=== PATIENT | female | born 1980 | race African-American/Black ===

== ENCOUNTER 2017-03-30 11:35 | Emergency (ER) | payer OTHER ==
[2017-03-30] MEDS ORDERED: SODIUM CHLORIDE 0.9% 1000 ML INFUS.BAG IV ONE ×2 (11:42→12:25)
--- NOTE | 2017-03-30 11:49 | PDOC ---
Attending Attestation - Resident Resident Name: JoseEric albarran - ED Attending Attestation I have performed the following: I have examined & evaluated the patient, The case was reviewed & discussed with the resident, I agree w/resident's findings & plan, Exceptions are as noted - HPI HPI: 36 yo F history DM2 presents with 4-5 days of nausea, intermittent vomiting, and elevated blood glucose measurements. She states she has symptoms of a yeast infection. She has had recent polyuria. No fever, cough, cp, SOB. No recent illness. She states she has been adherent to her DM regimen. - Physicial Exam PE: GENERAL: Awake, alert, and fully oriented, in no acute distress. +Odor of yeast. HEAD: No signs of trauma EYES: PERRLA, EOMI, sclera anicteric, conjunctiva clear ENT: Auricles normal inspection, hearing grossly normal, nares patent, oropharynx clear without exudates. Moist mucosa NECK: Normal ROM, supple, no lymphadenopathy, JVD, or masses LUNGS: Breath sounds equal, clear to auscultation bilaterally. No wheezes, and no crackles HEART: Regular rate and rhythm, normal S1 and S2, no murmurs, rubs or gallops ABDOMEN: Soft, +epigastric tenderness, normoactive bowel sounds. No guarding, no rebound. No masses EXTREMITIES: Normal range of motion, no edema. No clubbing or cyanosis. No cords, erythema, or tenderness NEUROLOGICAL: Cranial nerves II through XII grossly intact. Normal speech, normal gait SKIN: Warm, Dry, normal turgor, no lesions noted. - Medical Decision Making No signs of acute abdomen on exam. Will treat with IV fluids and insulin for elevated blood sugar, will obtain CBC/CMP/acetone and UA.
[2017-03-30 11:50] VITALS: BMI 29.7
[2017-03-30] MEDS ORDERED: FLUCONAZOLE 150 MG TABLET PO ONE (12:11)
[2017-03-30] MEDS ORDERED: FLUCONAZOLE 100 MG TABLET (UD) ONE (12:29)
[2017-03-30 12:41] LABS: BASO % 0.5 % (0-2.0); EOS % 0.4 % (0-4.5); LYMPH # 1.5 (8-40); MCH 22.5 pg (25.7-33.7); MCHC 31.8 g/dl (32.0-36.0); MEAN CELL VOLUME 70.8 fl (80-96); MEAN PLT VOLUME 8.9 fl (7.5-11.1); MONO # 0.4 # (3.8-10.2); NEUT # 3.7 # (42.8-82.8); NEUT % 66.1 % (42.8-82.8); PLATELET COUNT 245 K/MM3 (134-434); RDW 15.2 % (11.6-15.6); WHITE BLOOD COUNT 5.6 K/mm3 (4.0-10.0)
[2017-03-30 12:49] LABS: VENOUS BLOOD GAS HCO3 30.5 meq/L (19-25); VENOUS PH 7.42 (7.32-7.42)
[2017-03-30 12:58] LABS: ALBUMIN 3.1 g/dl (3.4-5.0); ANION GAP 8 (8-16); BILIRUBIN,TOTAL 0.5 mg/dL (0.2-1.0); CALCIUM 8.6 mg/dL (8.5-10.1); CO2 32 mmol/L (21-32); CREATININE 0.7 mg/dL (0.55-1.02); MAGNESIUM 1.3 mg/dL (1.8-2.4); SGOT/AST 27 U/L (15-37); SGPT/ALT 31 U/L (12-78); TOT PROT 7.4 g/dl (6.4-8.2)
[2017-03-30 12:59] LABS: ALK PHOS 295 U/L (45-117)
[2017-03-30 13:14] LABS: GLUCOSE,RANDOM 455 mg/dL (74-106)
--- NOTE | 2017-03-30 13:21 | PDOC ---
History of Present Illness - General Chief Complaint: Nausea/Vomiting Stated Complaint: HYPERGLYCEMIA Time Seen by Provider: 03/30/17 11:40 History Source: Patient, EMS Exam Limitations: No Limitations - History of Present Illness Initial Comments: 03/30/17 13:15 The patient is a 36F with a PMH of IDDM who presents to the ED via EMS for 4-5 days of nausea, vomiting, and diarrhea. The patient was sent from her PCP's office for having a BGL of 526. She was given humalog in the clinic. She is complaining of dizziness, weakness, nausea, vomiting, and a yeast infection ( which she says she gets frequently 2/2 to diabetes). She is also complaining of a headache, frontal, pressure-like and does not radiate. She denies CP, SOB, fever, chills. She has been urinating more frequently. Past History - Past Medical History Allergies/Adverse Reactions: Allergies Allergy/AdvReac Type Severity Reaction Status Date / Time No Known Allergies Allergy Verified 03/30/17 11:47 Home Medications: Ambulatory Orders Atorvastatin Ca [Lipitor] 10 mg PO HS 03/30/17 Baclofen 10 mg PO BID PRN 03/30/17 Cephalexin Monohydrate [Keflex -] 500 mg PO BID #10 capsule 03/30/17 L. Acidophilus/Pectin, [place] [Acidophilus Capsule] 1 each PO DAILY 03/30/17 Liraglutide [Victoza -] 1.2 mg SQ DAILY@0700 03/30/17 Anemia: No Asthma: Yes (childhood) Cancer: No Cardiac Disorders: No CVA: No COPD: No CHF: No Dementia: No Diabetes: Yes (IDDM) GI Disorders: Yes (GASTRITIS) Disorders: No HTN: No Hypercholesterolemia: No Liver Disease: No Seizures: No Thyroid Disease: No - Surgical History Abdominal Surgery: No Appendectomy: No Cardiac Surgery: No Cholecystectomy: No Lung Surgery: No Neurologic Surgery: No Orthopedic Surgery: Yes (tooth extraction) - Reproductive History Spontaneous : 3 (one prior d+c; eager to have procedure again + move on) - Immunization History Immunization Up to Date: Yes - Suicide/Smoking/Psychosocial Hx Smoking Status: No Smoking History: Never smoked Have you smoked in the past 12 months: No Number of Cigarettes Smoked Daily: 0 Hx Alcohol Use: No Drug/Substance Use Hx: No Substance Use Type: None Hx Substance Use Treatment: No Review of Systems - Review of Systems Able to Perform ROS?: Yes Comments:: 03/30/17 13:17 GENERAL/CONSTITUTIONAL: No fever or chills. No weakness. HEAD, EYES, EARS, NOSE AND THROAT: No change in vision. No ear pain or discharge. No sore throat. GASTROINTESTINAL: Positive for nausea, vomiting, diarrhea, and abdominal pain. GENITOURINARY: Positive for increased frequency and yeast infection. No dysuria. CARDIOVASCULAR: No chest pain, palpitations, or lightheadedness. RESPIRATORY: No cough, wheezing, shortness of breath, or hemoptysis. MUSCULOSKELETAL: No joint or muscle swelling or pain. No neck or back pain. SKIN: No rash or lesions. NEUROLOGIC: Positive for headache. No numbness, tingling, weakness, loss of consciousness, or change in strength/sensation. ENDOCRINE: Positive for increased thirst. No abnormal weight change. HEMATOLOGIC/LYMPHATIC: No anemia, easy bleeding, or history of blood clots. ALLERGIC/IMMUNOLOGIC: No hives or skin allergy. Is the patient limited Arabic proficient: No *Physical Exam - Vital Signs Last Vital Signs Temp Pulse Resp BP Pulse Ox 98.5 F 119 H 18 93/69 100 03/30/17 11:47 03/30/17 11:47 03/30/17 11:47 03/30/17 11:47 03/30/17 11:47 - Physical Exam Comments: 03/30/17 13:31 GENERAL: Well developed, well nourished. Awake and alert. No acute distress. HEENT: Normocephalic, atraumatic. Hearing grossly normal. Moist mucous membranes. PERRLA, EOMI. No conjunctival pallor. Sclera are non-icteric. Oropharynx is clear. NECK: Supple. Full ROM. No JVD. CARDIOVASCULAR: Regular rate and rhythm. No murmurs, rubs, or gallops. Distal pulses are 2+ and symmetric. PULMONARY: No evidence of respiratory distress. Lungs clear to auscultation bilaterally. No wheezing, rales or rhonchi. ABDOMINAL: Positive for diffuse tenderness to palpation, especially in epigastric region. Soft. Non-distended. No rebound or guarding. No organomegaly. Normoactive bowel sounds. GENITOURINARY: No CVA tenderness bilaterally. MUSCULOSKELETAL: Normal range of motion at all joints. No bony deformities or tenderness. EXTREMITIES: No cyanosis. No clubbing. No edema. No calf tenderness. SKIN: Warm and dry. Normal capillary refill. No rashes. No jaundice. NEUROLOGICAL: Alert, awake, appropriate. Cranial nerves 2-12 intact. PSYCHIATRIC: Cooperative. Good eye contact. Appropriate mood and affect. Heart Score/ECG Review #1 General ECG Interpretation: Sinus Rhythm, Normal Rate, Normal Intervals, No acute ischemic changes Compared to previous ECG there are: Previous ECG unavail 03/30/17 13:33 Sinus tach 101 Developing/Incomplete RBBB QRS 98 QTc 451 ED Treatment Course - LABORATORY CBC & Chemistry Diagram: 03/30/17 12:18 03/30/17 12:41 - ADDITIONAL ORDERS Additional order review: Laboratory Results 03/30/17 03/30/17 12:41 12:41 VBG pH 7.42 POC VBG pCO2 47.6 POC VBG pO2 50.7 H Mixed VBG HCO3 30.5 H Sodium 134 L Potassium 3.4 L Chloride 94 L Carbon Dioxide 32 Anion Gap 8 BUN 10 D Creatinine 0.7 D Creat Clearance w eGFR > 60 Random Glucose 455 H* D Calcium 8.6 Magnesium 1.3 L Total Bilirubin 0.5 D AST 27 D ALT 31 Alkaline Phosphatase 295 H Creatine Kinase Cancelled Troponin I Cancelled Total Protein 7.4 Albumin 3.1 L 03/30/17 12:18 RBC 5.25 H D MCV 70.8 L MCHC 31.8 L RDW 15.2 MPV 8.9 Neutrophils % 66.1 D Lymphocytes % 26.7 D Monocytes % 6.3 Eosinophils % 0.4 Basophils % 0.5 - Medications Given in the ED: ED Medications Discontinued Medications Generic Name Dose Route Start Last Admin Trade Name Freq PRN Reason Stop Dose Admin Fluconazole 150 mg 03/30/17 12:11 03/30/17 12:31 Fluconazole PO 03/30/17 12:12 150 mg ONCE ONE Administration Sodium Chloride 1,000 ml 03/30/17 11:42 03/30/17 12:27 Normal Saline - IV 03/30/17 11:43 1,000 ml ONCE ONE Administration Medical Decision Making - Medical Decision Making 03/30/17 17:45 The patient is a 36F with a PMH of DM who presented with a BGL that was read as "high". She was not acidotic and did not have acetones or an increased gap. This is likely just high blood glucose. Her GI symptoms have resolved. BGL after insulin in ED is 206. Patient agrees for d/c. *DC/Admit/Observation/Transfer Diagnosis at time of Disposition: High glucose - Discharge Dispostion Disposition: HOME Condition at time of disposition: Stable Admit: No - Prescriptions Prescriptions: Cephalexin Monohydrate [Keflex -] 500 mg PO BID #10 capsule - Referrals Referrals: Jeff Chen MD [Primary Care Provider] - - Patient Instructions Printed Discharge Instructions: DI for Nausea -- Adult, DI for Vomiting -- Adult Additional Instructions: Please return to the ER if symptoms persist, worsen, or new symptoms arise. Please follow up with your primary care physician in 2-3 days. Please return to the ER if you have any signs or symptoms of chest pain, shortness of breath, uncontrollable fever, chills, nausea, vomiting, numbness, tingling, or weakness in any part of your body, changes in vision, or slurred speech. Please take your medications as prescribed. - Post Discharge Activity
[2017-03-30] MEDS ORDERED: INSULIN REGULAR HUMAN 100 UNITS/ML *VIAL SQ ONE (13:29)
[2017-03-30 14:07] LABS: ACETONE SERUM NEGATIVE (NEGATIVE)
[2017-03-30] MEDS ORDERED: INSULIN REGULAR HUMAN 100 UNITS/ML *VIAL ONE (14:23)
[2017-03-30] MEDS ORDERED: ACETAMINOPHEN 1000 MG/100 ML VIAL (NON FORMULARY) IVPB ONE (14:38)
[2017-03-30] MEDS ORDERED: ONDANSETRON 4 MG/2 ML VIAL IVPUSH ONE (14:38)
[2017-03-30] MEDS ORDERED: ONDANSETRON 4 MG/2 ML VIAL ONE (14:45)
[2017-03-30] MEDS ORDERED: ACETAMINOPHEN INJECTION 100 ML IVPB ONE (14:45)
[2017-03-30 15:03] LABS: URINE APPEARANCE CLOUDY; URINE BILIRUBIN NEGATIVE (NEGATIVE); URINE BLOOD 1+ (NEGATIVE); URINE COLOR LTYELLOW; URINE GLUCOSE (UA) 3+ (NEGATIVE); URINE KETONE 1+ (NEGATIVE); URINE NITRITE NEGATIVE (NEGATIVE); URINE PROTEIN NEGATIVE (NEGATIVE); URINE UROBILINOGEN NEGATIVE mg/dL (0.2-1.0)
[2017-03-30 15:43] LABS: URINE LEUK ESTERASE 2+ (NEGATIVE)
[2017-03-30 15:57] VITALS: TEMP 98.1
[2017-03-30 15:59] LABS: URINE BACTERIA RARE /hpf (NONE SEEN); URINE MUCUS RARE; URINE RBC 9 /hpf (0-3); URINE WBC 50 /hpf (3-5); YEAST RARE
[2017-03-30] MEDS ORDERED: CEFTRIAXONE 1 GM in DEXTROSE 5%-WATER - 50 ML IVPB ONE (16:06)
[2017-03-30] MEDS ORDERED: CEFTRIAXONE 1 GM/50 ML BAG ONE (16:13)
[2017-03-30 18:16] VITALS: BP 110/51; PULSE 65
[2017-03-30 18:25] LABS: URINE LEUK ESTERASE 1+ (NEGATIVE)
--- NOTE | 2017-03-31 13:25 | EKG ---
Test Reason : Blood Pressure : / mmHG Vent. Rate : 101 BPM Atrial Rate : 101 BPM P-R Int : 122 ms QRS Dur : 098 ms QT Int : 348 ms P-R-T Axes : 037 006 000 degrees QTc Int : 451 ms SINUS TACHYCARDIA CANNOT RULE OUT ANTERIOR INFARCT , AGE UNDETERMINED ABNORMAL ECG NO PREVIOUS ECGS AVAILABLE Confirmed by CARLOS BEAR MD ([id number]) on 03/31/2017 1:24:49 PM Referred By: Confirmed By:CARLOS BEAR MD
== END 2017-03-30 18:16 | disposition home or self-care (01) ==
LOC: JER 11:35
PROC: 3E03329 Introduction of Other Anti-infective into Peripheral Vein, Percutaneous Approach (ICD-10-PCS; principal; 2017-03-30)
PROC: 3E033NZ Introduction of Analgesics, Hypnotics, Sedatives into Peripheral Vein, Percutaneous Approach (ICD-10-PCS; 2017-03-30)
PROC: 3E033GC Introduction of Other Therapeutic Substance into Peripheral Vein, Percutaneous Approach (ICD-10-PCS; 2017-03-30)
PROC: 3E013VG Introduction of Insulin into Subcutaneous Tissue, Percutaneous Approach (ICD-10-PCS; 2017-03-30)
DX: E10.65 Type 1 diabetes mellitus with hyperglycemia (principal); Z79.4 Long term (current) use of insulin; B37.3 Candidiasis of vulva and vagina
CPT/HCPCS: 36415; 80053; 81003; 81015; 82009; 82803; 83690; 83735; 84703; 85025; 87086; 93005; 93010; 99284-25

== ENCOUNTER 2017-05-17 08:19 | Emergency (ER) | payer OTHER ==
[2017-05-17 08:39] VITALS: BP 107/70; PULSE 90; TEMP 98.6; BMI 30.4
[2017-05-17] MEDS ORDERED: FAMOTIDINE IV 20 MG/12 ML VIAL IVPUSH ONE (09:08)
[2017-05-17] MEDS ORDERED: MAG HYDROX/AL HYDROX/SIMETH 30 ML UNIT-DOSE CUP PO ONE (09:08)
[2017-05-17] MEDS ORDERED: ONDANSETRON 4 MG/2 ML VIAL IVPUSH ONE (09:08)
[2017-05-17] MEDS ORDERED: SODIUM CHLORIDE 1,000 ML IV STA (09:08)
--- NOTE | 2017-05-17 09:09 | PDOC ---
History of Present Illness - General Chief Complaint: Pain, Acute Stated Complaint: ABD PAIN Time Seen by Provider: 05/17/17 08:37 History Source: Patient - History of Present Illness Timing/Duration: reports: getting worse Abdominal Pain Onset Location: reports: epigastric Past History - Past Medical History Allergies/Adverse Reactions: Allergies Allergy/AdvReac Type Severity Reaction Status Date / Time No Known Allergies Allergy Verified 05/17/17 08:37 Home Medications: Ambulatory Orders Atorvastatin Ca [Lipitor] 10 mg PO HS 03/30/17 Baclofen 10 mg PO BID PRN 03/30/17 Cephalexin Monohydrate [Keflex -] 500 mg PO BID #10 capsule 03/30/17 L. Acidophilus/Pectin, [place] [Acidophilus Capsule] 1 each PO DAILY 03/30/17 Liraglutide [Victoza -] 1.2 mg SQ DAILY@0700 03/30/17 Famotidine [Pepcid] 20 mg PO DAILY #14 tablet 05/17/17 Ondansetron HCl [Zofran] 4 mg PO Q8H #12 tablet 05/17/17 Tramadol HCl 50 mg PO Q6H #6 tablet MDD 200mg 05/17/17 Anemia: No Asthma: Yes (childhood) Cancer: No Cardiac Disorders: No CVA: No COPD: No CHF: No Dementia: No Diabetes: Yes (IDDM) GI Disorders: Yes (GASTRITIS) Disorders: No HTN: No Hypercholesterolemia: No Liver Disease: No Seizures: No Thyroid Disease: No - Surgical History Abdominal Surgery: No Appendectomy: No Cardiac Surgery: No Cholecystectomy: No Lung Surgery: No Neurologic Surgery: No Orthopedic Surgery: Yes (tooth extraction) - Reproductive History Spontaneous : 3 (one prior d+c; eager to have procedure again + move on) - Immunization History Immunization Up to Date: Yes - Suicide/Smoking/Psychosocial Hx Smoking Status: No Smoking History: Never smoked Have you smoked in the past 12 months: No Number of Cigarettes Smoked Daily: 0 Hx Alcohol Use: No Drug/Substance Use Hx: No Substance Use Type: None Hx Substance Use Treatment: No Review of Systems - Review of Systems Constitutional: No: Chills, Fever Respiratory: No: Shortness of Breath Cardiac (ROS): No: Chest Pain ABD/GI: Yes: Nausea, Vomiting. No: Diarrhea : No: Dysuria *Physical Exam - Vital Signs Last Vital Signs Temp Pulse Resp BP Pulse Ox 98.6 F 90 18 107/70 100 05/17/17 08:37 05/17/17 08:37 05/17/17 08:37 05/17/17 08:37 05/17/17 08:37 - Physical Exam General Appearance: Yes: Appropriately Dressed. No: Apparent Distress HEENT: positive: Normal Voice Neck: positive: Supple Respiratory/Chest: positive: Lungs Clear, Normal Breath Sounds. negative: Respiratory Distress Cardiovascular: positive: Regular Rate, S1, S2 Gastrointestinal/Abdominal: positive: Normal Bowel Sounds, Tender (to epigastrium), Soft. negative: Distended, Guarding, Rebound Musculoskeletal: negative: CVA Tenderness Integumentary: positive: Dry, Warm Neurologic: positive: Fully Oriented, Alert, Normal Mood/Affect ED Treatment Course - LABORATORY CBC & Chemistry Diagram: 05/17/17 09:40 05/17/17 09:40 Medical Decision Making - Medical Decision Making 05/17/17 09:09 36-year-old female, morbidly obese, insulin-dependent diabetes, hyperlipidemia, abnormal stress test in the past but no cath per patient, here with abdominal pain. Patient reports sharp epigastric pain that started 2 days ago, initially relieved with Tylenol but states medications no longer working. Pain now more constant, with an intensity of 8 out of 10. No a/w food. Had 3 episodes of non- bloody, non-bilious vomitus this a.m. No burping, change in bowel movements, fever or chills. Has been seen in ED in the past for similar pain and treated w / GI cocktail. Pt has also had h/o DKA See exam Epigastric pain, recurrent Gastritis vs [place] (though unlikely as no ruq tenderness) vs pancreatitis, less likely cardiac (but given abnl stress test per hx and h/o DM, will get EKG) -GI cocktail -labs/ekg -reassess 05/17/17 10:10 BG 401. Patient states she has not been taking her insulin because she has not been able to eat since her abdominal pain started 2 days ago. No evidence of DKA at this time. IV fluids and subcutaneous insulin in progress, will reassess 05/17/17 10:58 05/17/17 10:58 EKG today mostly unchanged from EKG 12/17. However, there is isolated flipped T in leads 3 that wasn't present on prior EKG. Patient has no chest pain or shortness of breath, but will sent a single troponin as discussed with Dr. Tse. 05/17/17 11:15 On reassessment, patient continues to complain of epigastric pain. Will continue to manage pain in ED 05/17/17 12:45 Trop negative. On reassessment, patient reports feeling better and tolerating po. Repeat abdominal exam benign. Final fingerstick 271. DC with PMD follow- up this week. Reasons to return discussed with patient 05/17/17 13:11 05/17/17 13:11 *DC/Admit/Observation/Transfer Diagnosis at time of Disposition: Epigastric abdominal pain, Hyperglycemia - Discharge Dispostion Disposition: HOME Condition at time of disposition: Improved - Prescriptions Prescriptions: Famotidine [Pepcid] 20 mg PO DAILY #14 tablet Ondansetron HCl [Zofran] 4 mg PO Q8H #12 tablet Tramadol HCl 50 mg PO Q6H #6 tablet MDD 200mg - Referrals Referrals: Ken Vitale [Primary Care Provider] - - Patient Instructions Printed Discharge Instructions: Gastritis, DI for Hyperglycemia -- Adult Additional Instructions: Your abdominal pain is possibly due to gastritis. Take Pepcid and zofran as directed. If meds do not alleviate pain, you can take a tramadol. Please take your insulin as was prescribed to Please follow-up with your PMD this week. If symptoms worsen, return to ER - Post Discharge Activity
[2017-05-17] MEDS ORDERED: MAG HYDROX/AL HYDROX/SIMETH 30 ML UNIT-DOSE CUP ONE (09:47)
[2017-05-17] MEDS ORDERED: FAMOTIDINE 20 MG/50 ML IVPB 20 MG/50 ML MG IVPB ONE (09:47)
[2017-05-17] MEDS ORDERED: ONDANSETRON 4 MG/2 ML VIAL ONE (09:47)
[2017-05-17 09:49] LABS: BASO % 0.3 % (0-2.0); EOS % 0.4 % (0-4.5); HEMATOCRIT 32.2 % (32.4-45.2); HEMOGLOBIN 10.3 GM/dL (10.7-15.3); LYMPH % 28.6 % (8-40); MCH 22.3 pg (25.7-33.7); MEAN CELL VOLUME 69.9 fl (80-96); MEAN PLT VOLUME 7.9 fl (7.5-11.1); NEUT % 64.7 % (42.8-82.8); PLATELET COUNT 261 K/MM3 (134-434); RBC 4.61 M/mm3 (3.60-5.2); RDW 15.6 % (11.6-15.6); WHITE BLOOD COUNT 5.5 K/mm3 (4.0-10.0)
[2017-05-17 10:05] LABS: ALBUMIN 3.2 g/dl (3.4-5.0); ALK PHOS 291 U/L (45-117); ANION GAP 7 (8-16); BILIRUBIN,TOTAL 0.6 mg/dL (0.2-1.0); BLOOD UREA NITROGEN 7 mg/dL (7-18); CALCIUM 8.3 mg/dL (8.5-10.1); CHLORIDE 99 mmol/L (98-107); CO2 30 mmol/L (21-32); CREATININE 0.7 mg/dL (0.55-1.02); POTASSIUM 3.6 mmol/L (3.5-5.1); SGOT/AST 10 U/L (15-37); SGPT/ALT 23 U/L (12-78); SODIUM 136 mmol/L (136-145); TOT PROT 7.1 g/dl (6.4-8.2)
[2017-05-17 10:06] LABS: LIPASE 294 U/L (73-393)
[2017-05-17 10:09] LABS: GLUCOSE,RANDOM 401 mg/dL (74-106)
[2017-05-17] MEDS ORDERED: INSULIN REGULAR HUMAN 100 UNITS/ML *VIAL SQ ONE (10:09)
[2017-05-17] MEDS ORDERED: INSULIN (NOVOLOG) ASPART 100 UNITS/ML 10ML VIAL ONE (10:34)
[2017-05-17] MEDS ORDERED: RANITIDINE HCL 150 MG TABLET (FP) PO ONE (11:11)
[2017-05-17] MEDS ORDERED: traMADol HCL 50 MG TABLET PO ONE (11:31)
[2017-05-17] MEDS ORDERED: traMADol HCL 50 MG TABLET ONE (12:01)
[2017-05-17] MEDS ORDERED: RANITIDINE HCL 150 MG TABLET (FP) ONE (12:02)
--- NOTE | 2017-05-17 23:18 | EKG ---
Test Reason : Blood Pressure : / mmHG Vent. Rate : 082 BPM Atrial Rate : 082 BPM P-R Int : 124 ms QRS Dur : 082 ms QT Int : 382 ms P-R-T Axes : 065 010 003 degrees QTc Int : 446 ms NORMAL SINUS RHYTHM NONSPECIFIC ST AND T WAVE ABNORMALITY WHEN COMPARED WITH ECG OF 30-MAR-2017 12:50, NO SIGNIFICANT CHANGE WAS FOUND Confirmed by MAYCOL HOUGH MD ([id number]) on 05/17/2017 11:18:04 PM Referred By: Confirmed By:MAYCOL HOUGH MD
== END 2017-05-17 13:11 | disposition home or self-care (01) ==
LOC: JER 08:19
PROC: 3E0337Z Introduction of Electrolytic and Water Balance Substance into Peripheral Vein, Percutaneous Approach (ICD-10-PCS; principal; 2017-05-17)
PROC: 3E033GC Introduction of Other Therapeutic Substance into Peripheral Vein, Percutaneous Approach (ICD-10-PCS; 2017-05-17)
PROC: 3E013VG Introduction of Insulin into Subcutaneous Tissue, Percutaneous Approach (ICD-10-PCS; 2017-05-17)
DX: K29.00 Acute gastritis without bleeding (principal); E10.65 Type 1 diabetes mellitus with hyperglycemia; Z79.4 Long term (current) use of insulin; E78.5 Hyperlipidemia, unspecified; R94.39 Abnormal result of other cardiovascular function study
CPT/HCPCS: 36415; 80053; 82550; 82962; 83690; 84484; 84703; 85025; 93005; 93010; 96361; 96372; 96374; 96375; 99281-25

== ENCOUNTER 2018-12-15 09:33 | Emergency (ER) | payer OTHER ==
[2018-12-15 09:45] VITALS: BMI 28.5
[2018-12-15] MEDS ORDERED: SODIUM CHLORIDE 1,000 ML IV STA ×2 (10:35→13:06)
[2018-12-15] MEDS ORDERED: FAMOTIDINE 20 MG/50 ML IVPB 20 MG/50 ML MG IVPB ONE ×2 (10:35→10:44)
[2018-12-15] MEDS ORDERED: ONDANSETRON 4 MG/2 ML VIAL IVPUSH ONE (10:35)
[2018-12-15] MEDS ORDERED: ONDANSETRON 4 MG/2 ML VIAL ONE (10:44)
--- NOTE | 2018-12-15 11:22 | PDOC ---
History of Present Illness - General Chief Complaint: Blood Sugar Problem Stated Complaint: ABD PAIN Time Seen by Provider: 12/15/18 10:16 History Source: Patient Exam Limitations: No Limitations - History of Present Illness Initial Comments: 12/15/18 11:15 38 yo F w/ a h/o IDDM, gastritis, HLD comes in c/o high blood sugar. She check her FS today and it was in the 400s. For the past 3 days she has not been feeling well with generalized malaise, lightheadedness, diffuse abdominal pain and 2-3 daily episodes of NBNB vomiting. Also w/ polyuria, polydipsia. Pt denies any burning/pain on urination, no headache, no neck pain/stiffness, no chest pain/SOB, no rash anywhere, no URI symptoms, no cough, no known sick contacts, no recent travel. Pt says that she take Insulin regular 3 times a day, took "42 units of insulin regular this morning" 12/15/18 11:26 Past History - Past Medical History Allergies/Adverse Reactions: Allergies Allergy/AdvReac Type Severity Reaction Status Date / Time No Known Allergies Allergy Verified 12/15/18 09:42 Home Medications: Ambulatory Orders Atorvastatin Ca [Lipitor] 10 mg PO HS 03/30/17 Baclofen 10 mg PO BID PRN 03/30/17 Cephalexin Monohydrate [Keflex -] 500 mg PO BID #10 capsule 03/30/17 L. Acidophilus/Pectin, [place] [Acidophilus Capsule] 1 each PO DAILY 03/30/17 Liraglutide [Victoza -] 1.2 mg SQ DAILY@0700 03/30/17 Famotidine [Pepcid] 20 mg PO DAILY #14 tablet 05/17/17 Ondansetron HCl [Zofran] 4 mg PO Q8H #12 tablet 05/17/17 Tramadol HCl 50 mg PO Q6H #6 tablet MDD 200mg 05/17/17 Doxepin HCl 50 mg PO HS #30 capsule 02/10/18 Sertraline HCl [Zoloft -] 25 mg PO DAILY #30 tablet 02/10/18 hydrOXYzine PAMOATE [Vistaril -] 25 mg PO QID #120 capsule 02/10/18 Anemia: No Asthma: Yes (childhood) Cancer: No Cardiac Disorders: No CVA: No COPD: No CHF: No Dementia: No Diabetes: Yes (IDDM) GI Disorders: Yes (GASTRITIS, pancreatitis) Disorders: No HTN: No Hypercholesterolemia: No Liver Disease: No Seizures: No Thyroid Disease: No - Surgical History Abdominal Surgery: No Appendectomy: No Cardiac Surgery: No Cholecystectomy: Yes Lung Surgery: No Neurologic Surgery: No Orthopedic Surgery: Yes (tooth extraction) - Reproductive History Spontaneous : 3 (one prior d+c; eager to have procedure again + move on) - Immunization History Immunization Up to Date: Yes - Suicide/Smoking/Psychosocial Hx Smoking Status: No Smoking History: Never smoked Have you smoked in the past 12 months: No Number of Cigarettes Smoked Daily: 0 Hx Alcohol Use: No Drug/Substance Use Hx: No Substance Use Type: None Hx Substance Use Treatment: No Review of Systems - Review of Systems Able to Perform ROS?: Yes Constitutional: Yes: Malaise. No: Chills, Fever, Night Sweats HEENTM: No: Eye Pain, Recent change in vision, Throat Pain Respiratory: No: Cough, Shortness of Breath Cardiac (ROS): No: Chest Pain, Palpitations, Chest Tightness ABD/GI: Yes: Nausea, Vomiting, Abdominal cramping. No: Diarrhea : No: Dysuria, Hematuria Musculoskeletal: No: Back Pain Integumentary: No: Rash Neurological: No: Headache, Numbness Psychiatric: No: Change in Appetite Endocrine: No: Unexplained Weight Loss *Physical Exam - Vital Signs Last Vital Signs Temp Pulse Resp BP Pulse Ox 98.3 F 110 H 18 99/69 98 12/15/18 09:43 12/15/18 09:43 12/15/18 09:43 12/15/18 09:43 12/15/18 09:43 - Physical Exam General Appearance: Yes: Nourished. No: Apparent Distress HEENT: positive: SONI, Normal ENT Inspection, Normal Voice. negative: Pale Conjunctivae, Scleral Icterus (R), Scleral Icterus (L) Neck: positive: Supple. negative: Decreased range of motion, Tender midline Respiratory/Chest: positive: Lungs Clear, Normal Breath Sounds. negative: Respiratory Distress, Accessory Muscle Use Cardiovascular: positive: Regular Rhythm, Regular Rate Gastrointestinal/Abdominal: positive: Normal Bowel Sounds, Tender (diffuse, non focal tenderness, mostly to diffuse lower abdomen), Soft. negative: Guarding, Rebound Musculoskeletal: positive: Normal Inspection. negative: CVA Tenderness, Decreased Range of Motion Extremity: positive: Normal Capillary Refill, Normal Inspection, Normal Range of Motion. negative: Tender, Pedal Edema Integumentary: positive: Normal Color, Dry. negative: Jaundice, Rash Neurologic: positive: Fully Oriented, Alert, Normal Mood/Affect ED Treatment Course - LABORATORY CBC & Chemistry Diagram: 12/15/18 11:00 12/15/18 11:00 - ADDITIONAL ORDERS Additional order review: Laboratory Results 12/15/18 10:51 POC Glucometer 494 12/15/18 10:51 POC Glucometer 494 Medical Decision Making - Medical Decision Making 12/15/18 11:24 38 yo F w/ hyperglycemia R/O DKA. Will also check UA, R/O UTI, will check labs, give IV fluids, zofran, pepcid and reassess No indication for EKG/CXR at this time. 12/15/18 13:17 ANother bolus ordered. Labs reviewed. Glucose 445, No gap, small acetone. WBCs WNLs, Alk phosphatase high, will do a RUQ sono due to abdominal pain and vomiting 12/15/18 13:18 12/15/18 15:47 Pt feels much better, sono WNLs, pt asking to get discharged. FS came down to 299. Insulin 4u SQ ordered Will dsicharge with PMD follow up tomorrow Strict diet Return for worsening/concerning symptoms Pt verbalizes understanding and agrees with plan 12/15/18 16:00 Upon chart review, no UA results. When asked for a urine specimen, pt says that she wants to sign ou against medical advice, she has to go and cannot stay anymore. She understands the risks, understands that a UTI can cause hyperglycemia and if untreated can lead to sepsis, . Against Medical Advice The patient has requested to leave the hospital against medical advice. I informed the patient of all testing results that have returned so far, what my concerns are and what testing, treatments and likely disposition I am planning - my management plan. I discussed the the risks, benefits and alternatives of my management plan, even to the endpoint of serious disability and/or . I involved her daughter in the decision as well. I believe the patient has the capacity to make this decision independently. I explained to the patient that they could return to the ED at anytime for further care. *DC/Admit/Observation/Transfer Diagnosis at time of Disposition: Hyperglycemia - Discharge Dispostion Disposition: AGAINST MEDICAL ADVICE Condition at time of disposition: Stable - Referrals Referrals: Ken Vitale [Primary Care Provider] - - Patient Instructions Printed Discharge Instructions: DI for Hyperglycemia -- Adult Additional Instructions: Please see your primary care doctor tomorrow. Drink lots of fluids. FOllow a low carbohydrate diet. return for worsening/concerning symptoms. You understand that ou are leaving against medical advice without having your urine tested for urinary infection and you assume all the risks associated with urinary tract infections in diabetics including sepsis and even - Post Discharge Activity
[2018-12-15 11:23] LABS: VENOUS PC02 44.3 mmHg (38-52); VENOUS PH 7.36 (7.31-7.41)
[2018-12-15 11:28] LABS: BASO % 0.3 % (0-2.0); EOS % 0.8 % (0-4.5); HEMATOCRIT 37.9 % (32.4-45.2); HEMOGLOBIN 12.4 GM/dL (10.7-15.3); LYMPH % 29.3 % (8-40); MCH 23.8 pg (25.7-33.7); MCHC 32.7 g/dl (32.0-36.0); MEAN CELL VOLUME 72.6 fl (80-96); MEAN PLT VOLUME 9.5 fl (7.5-11.1); MONO % 4.7 % (3.8-10.2); NEUT % 64.9 % (42.8-82.8); PLATELET COUNT 243 K/MM3 (134-434); RBC 5.23 M/mm3 (3.60-5.2); RDW 15.1 % (11.6-15.6)
[2018-12-15 11:31] LABS: VENOUS PO2 < 49 mmHg (28-48)
[2018-12-15 11:39] LABS: ALBUMIN 3.5 g/dl (3.4-5.0); ALK PHOS 286 U/L (45-117); ANION GAP 12 MMOL/L (8-16); BILIRUBIN,TOTAL 0.6 mg/dL (0.2-1); BLOOD UREA NITROGEN 16.3 mg/dL (7-18); CALCIUM 9.4 mg/dL (8.5-10.1); CHLORIDE 93 mmol/L (98-107); CO2 25 mmol/L (21-32); LIPASE 282 U/L (73-393); MAGNESIUM 1.6 mg/dL (1.8-2.4); PHOSPHOROUS 4.2 mg/dL (2.5-4.9); SGOT/AST 23 U/L (15-37); SGPT/ALT 32 U/L (13-61); SODIUM 131 mmol/L (136-145)
[2018-12-15 11:43] LABS: GLUCOSE,RANDOM 445 mg/dL (74-106)
--- NOTE | 2018-12-15 14:17 | PDOC ---
*Physical Exam - Vital Signs Last Vital Signs Temp Pulse Resp BP Pulse Ox 98.3 F 110 H 18 99/69 98 12/15/18 09:43 12/15/18 09:43 12/15/18 09:43 12/15/18 09:43 12/15/18 09:43 ED Treatment Course - LABORATORY CBC & Chemistry Diagram: 12/15/18 11:00 12/15/18 11:00 - ADDITIONAL ORDERS Additional order review: Laboratory Results 12/15/18 12/15/18 12/15/18 11:00 11:00 11:00 VBG pH 7.36 POC VBG pCO2 44.3 POC VBG pO2 < 49 H VBG HCO3 24.2 VBG O2 Sat (Ifeanyi) 65.5 L VBG Base Excess -1.0 Sodium 131 L Potassium 4.0 Chloride 93 L Carbon Dioxide 25 Anion Gap 12 BUN 16.3 Creatinine 1.0 Est GFR (CKD-EPI)AfAm 82.19 Est GFR (CKD-EPI)NonAf 70.91 POC Glucometer Random Glucose 445 H* Calcium 9.4 Phosphorus 4.2 Magnesium 1.6 L Total Bilirubin 0.6 AST 23 ALT 32 Alkaline Phosphatase 286 H Total Protein 8.0 Albumin 3.5 Lipase 282 Beta HCG, Quant < 1.0 Acetone, Qual Positive small 1+ H 12/15/18 10:51 VBG pH POC VBG pCO2 POC VBG pO2 VBG HCO3 VBG O2 Sat (Ifeanyi) VBG Base Excess Sodium Potassium Chloride Carbon Dioxide Anion Gap BUN Creatinine Est GFR (CKD-EPI)AfAm Est GFR (CKD-EPI)NonAf POC Glucometer 494 Random Glucose Calcium Phosphorus Magnesium Total Bilirubin AST ALT Alkaline Phosphatase Total Protein Albumin Lipase Beta HCG, Quant Acetone, Qual 12/15/18 12/15/18 11:00 10:51 RBC 5.23 H MCV 72.6 L MCHC 32.7 RDW 15.1 MPV 9.5 D Neutrophils % 64.9 Lymphocytes % 29.3 Monocytes % 4.7 Eosinophils % 0.8 D Basophils % 0.3 POC Glucometer 494 - Medications Given in the ED: ED Medications Discontinued Medications Generic Name Dose Route Start Last Admin Trade Name Freq PRN Reason Stop Dose Admin Sodium Chloride 1,000 mls @ 1,000 mls/hr 12/15/18 10:35 12/15/18 11:11 Normal Saline - IV 12/15/18 11:34 1,000 mls/hr ASDIR STA Administration Famotidine/Sodium Chloride 20 mg in 50 mls @ 100 mls/hr 12/15/18 10:35 11:21 Pepcid 20 Mg Premixed Ivpb - IVPB 12/15/18 11:04 100 mls/hr ONCE ONE Administration Sodium Chloride 1,000 mls @ 1,000 mls/hr 12/15/18 13:06 12/15/18 13:55 Normal Saline - IV 12/15/18 14:05 1,000 mls/hr ASDIR STA Administration Ondansetron HCl 4 mg 12/15/18 10:35 12/15/18 11:21 Zofran Injection IVPUSH 12/15/18 10:36 4 mg ONCE ONE Administration Medical Decision Making - Medical Decision Making 12/15/18 14:15 My MLP note 38-year-old female dependent diabetic presents with hyperglycemia with generalized abdominal cramping and nausea/vomiting. Exam as noted, afebrile, hemodynamically stable Rule out primary GI process versus DKA versus hyperglycemia/dehydration. Labs note normal pH, no elevated anion gap, hyperglycemia. Baseline elevated PHOSPHORUS, but we'll check ultrasound to rule out biliary involvement given vomiting and abdominal cramping IV fluid rehydration, disposition accordingly *DC/Admit/Observation/Transfer Diagnosis at time of Disposition: Hyperglycemia - Referrals Referrals: Ken Vitale [Primary Care Provider] - - Patient Instructions - Post Discharge Activity
[2018-12-15] MEDS ORDERED: INSULIN REGULAR HUMAN 100 UNITS/ML *VIAL SQ ONE (15:31)
[2018-12-15 16:20] VITALS: BP 127/80; PULSE 92; TEMP 98.2
== END 2018-12-15 16:15 | disposition left against medical advice (07) ==
LOC: JER 09:33
PROC: 3E033GC Introduction of Other Therapeutic Substance into Peripheral Vein, Percutaneous Approach (ICD-10-PCS; principal; 2018-12-15)
PROC: 3E013VG Introduction of Insulin into Subcutaneous Tissue, Percutaneous Approach (ICD-10-PCS; 2018-12-15)
PROC: 3E0337Z Introduction of Electrolytic and Water Balance Substance into Peripheral Vein, Percutaneous Approach (ICD-10-PCS; 2018-12-15)
DX: E11.65 Type 2 diabetes mellitus with hyperglycemia (principal); E78.5 Hyperlipidemia, unspecified
CPT/HCPCS: 36415; 76705-TC; 80053; 82009; 82803; 82962; 83690; 83735; 84100; 84702; 85025; 99283-25; J7030

== ENCOUNTER 2020-12-18 13:15 | Inpatient (IN) | payer OTHER ==
[2020-12-18] MEDS ORDERED: SODIUM CHLORIDE 0.9% 500 ML INFUS.BAG IV ONE ×2 (14:19→15:59)
[2020-12-18] MEDS ORDERED: ACETAMINOPHEN 1000 MG/100 ML VIAL (NON FORMULARY) IVPB ONE (14:19)
[2020-12-18] MEDS ORDERED: FAMOTIDINE 20 MG/50 ML IVPB 20 MG/50 ML MG IVPB ONE ×2 (14:39→15:23)
[2020-12-18] MEDS ORDERED: ACETAMINOPHEN INJECTION 100 ML IVPB ONE (14:47)
[2020-12-18 15:22] LABS: VENOUS BASE EXCESS -1.4 mmol/L (-2-2); VENOUS O2 SATURATION 59.7 % (70-80); VENOUS PCO2 44.3 mmHg (38-52); VENOUS PH 7.356 (7.310-7.410)
[2020-12-18 15:31] LABS: BASO % 0.4 % (0-2.0); EOS % 0.5 % (0-4.5); HEMATOCRIT 31.8 % (32.4-45.2); HEMOGLOBIN 10.2 GM/dL (10.7-15.3); LYMPH % 23.1 % (8-40); MCH 21.4 pg (25.7-33.7); MCHC 32.1 g/dl (32.0-36.0); MEAN CELL VOLUME 66.7 fl (80-96); MEAN PLT VOLUME 8.1 fl (7.5-11.1); MONO % 5.2 % (3.8-10.2); NEUT % 70.8 % (42.8-82.8); PLATELET COUNT 318 10^3/uL (134-434); RBC 4.77 M/mm3 (3.60-5.2); RDW 16.6 % (11.6-15.6); WHITE BLOOD COUNT 6.8 K/mm3 (4.0-10.0)
[2020-12-18 15:49] LABS: CHLORIDE 100 mmol/L (98-107); SODIUM 134 mmol/L (136-145)
[2020-12-18 15:51] LABS: LIPASE 175 U/L (73-393); MAGNESIUM 1.3 mg/dL (1.8-2.4)
[2020-12-18 15:52] LABS: ANION GAP 12 MMOL/L (8-16); BLOOD UREA NITROGEN 18.2 mg/dL (7-18); CALCIUM 8.3 mg/dL (8.5-10.1); CO2 23 mmol/L (21-32)
[2020-12-18 15:54] LABS: PHOSPHOROUS 3.6 mg/dL (2.5-4.9)
[2020-12-18 15:55] LABS: BILIRUBIN,TOTAL 0.7 mg/dL (0.2-1); CREATININE 1.2 mg/dL (0.55-1.3); SGOT/AST 24 U/L (15-37); SGPT/ALT 51 U/L (13-61)
[2020-12-18 15:56] LABS: ALK PHOS 416 U/L (45-117); TOT PROT 7.6 g/dl (6.4-8.2)
[2020-12-18] MEDS ORDERED: morphine CARPU-JECT 2 MG/1 ML DISP.SYRIN IVPUSH ONE (15:58)
[2020-12-18 16:27] LABS: GLUCOSE,RANDOM 453 mg/dL (74-106)
[2020-12-18 16:33] LABS: ANISOCYTOSIS 2+; MACROCYTOSIS 0; OVALOCYTE 1+; PLATELET ESTIMATE NORMAL
[2020-12-18] MEDS ORDERED: MORPHINE SULFATE 2 MG/ML VIAL ONE ×2 (16:38→22:30)
[2020-12-18] MEDS ORDERED: MAGNESIUM SULF 50% (8.12 MEQ/2 ML-1 GM VIAL) IVPB ONE ×2 (17:15→22:18)
[2020-12-18] MEDS ORDERED: MAGNESIUM SULFATE IN WATER 2 GM/50 ML IVPB IVPB ONE ×2 (17:42→22:30)
[2020-12-18] MEDS ORDERED: METOCLOPRAMIDE HCL INJECTION 10 MG/2 ML VIAL IVPB ONE (17:48)
[2020-12-18] MEDS ORDERED: METOCLOPRAMIDE HCL INJECTION 10 MG/2 ML VIAL ONE (17:57)
[2020-12-18 20:11] LABS: URINE APPEARANCE Slightly Cloudy; URINE BILIRUBIN Negative (NEGATIVE); URINE COLOR Light yellow; URINE GLUCOSE (UA) 3+ (NEGATIVE); URINE KETONE 1+ (NEGATIVE); URINE LEUK ESTERASE Negative (NEGATIVE); URINE NITRITE Negative (NEGATIVE); URINE PROTEIN 1+ (NEGATIVE); URINE UROBILINOGEN 0.2 mg/dL (0.2-1.0)
[2020-12-18] MEDS ORDERED: ENOXAPARIN NA (PORCINE) 40 MG/0.4 ML DISP.SYRIN SQ ONE (22:03)
[2020-12-18] MEDS ORDERED: MORPHINE SULFATE 2 MG/ML VIAL IVPUSH ONE (22:16)
[2020-12-18] MEDS ORDERED: INSULIN (NOVOLOG) ASPART 100 UNITS/ML 10ML VIAL SQ ONE (22:19)
[2020-12-18] MEDS: INSULIN SLIDING SCALE (NOVOLOG) 1 VIAL SQ SCH (22:25)
[2020-12-18] MEDS: ENOXAPARIN NA (PORCINE) 40 MG/0.4 ML DISP.SYRIN SQ SCH (22:25)
[2020-12-18] MEDS ORDERED: SODIUM CHLORIDE 1,000 ML IV SCH (22:30)
[2020-12-18] MEDS ORDERED: MAGNESIUM SULF 50% (8.12 MEQ/2 ML-1 GM VIAL) ONE (23:11)
[2020-12-18 23:54] VITALS: BMI 35.4
[2020-12-19] MEDS: ACETAMINOPHEN 1000 MG/100 ML VIAL (NON FORMULARY) IVPB PRN ×2 (02:55→08:40)
[2020-12-19] MEDS: INSULIN SLIDING SCALE (NOVOLOG) 1 VIAL SQ SCH ×4 (06:05→22:54)
[2020-12-19] MEDS ORDERED: INSULIN (LEVEMIR) 100 UNITS/ML UNITS SQ ONE ×2 (07:58→10:59)
[2020-12-19] MEDS: METOCLOPRAMIDE HCL INJECTION 10 MG/2 ML VIAL IVPUSH PRN ×2 (10:11→21:44)
[2020-12-19] MEDS: ENOXAPARIN NA (PORCINE) 40 MG/0.4 ML DISP.SYRIN SQ SCH (10:12)
[2020-12-19] MEDS: FAMOTIDINE 20 MG TABLET PO SCH (10:13)
[2020-12-19] MEDS ORDERED: ACETAMINOPHEN 1000 MG/100 ML VIAL (NON FORMULARY) IVPB ONE (10:31)
[2020-12-19 10:34] LABS: BASO % 0.6 % (0-2.0); EOS % 1.7 % (0-4.5); HEMATOCRIT 26.4 % (32.4-45.2); HEMOGLOBIN 8.6 GM/dL (10.7-15.3); LYMPH % 29.4 % (8-40); MCH 21.9 pg (25.7-33.7); MCHC 32.7 g/dl (32.0-36.0); MEAN CELL VOLUME 66.8 fl (80-96); MEAN PLT VOLUME 8.1 fl (7.5-11.1); MONO % 6.8 % (3.8-10.2); NEUT % 61.5 % (42.8-82.8); PLATELET COUNT 248 10^3/uL (134-434); RBC 3.95 M/mm3 (3.60-5.2); RDW 16.6 % (11.6-15.6); WHITE BLOOD COUNT 4.4 K/mm3 (4.0-10.0)
[2020-12-19 11:00] LABS: ALBUMIN 2.5 g/dl (3.4-5.0)
[2020-12-19 11:01] LABS: BLOOD UREA NITROGEN 9.8 mg/dL (7-18); CALCIUM 7.8 mg/dL (8.5-10.1); MAGNESIUM 1.8 mg/dL (1.8-2.4); PHOSPHOROUS 2.8 mg/dL (2.5-4.9)
[2020-12-19 11:03] LABS: BILIRUBIN,TOTAL 0.7 mg/dL (0.2-1); TOT PROT 6.3 g/dl (6.4-8.2)
[2020-12-19 11:04] LABS: IRON SERUM 20 ug/dL (50-175)
[2020-12-19 11:05] LABS: CREATININE 0.7 mg/dL (0.55-1.3); TOTAL IRON BINDING CAPACITY 331 ug/dL (250-450)
[2020-12-19] MEDS: SODIUM CHLORIDE 1,000 ML IV SCH (11:08)
[2020-12-19] MEDS ORDERED: MAG HYDROX/AL HYDROX/SIMETH 30 ML UNIT-DOSE CUP PO PRN (12:01)
[2020-12-19] MEDS ORDERED: IRON SUCROSE INJECTION 200 MG in SODIUM CHLORIDE 90 ML IVPB ONE (13:00)
[2020-12-19] MEDS ORDERED: ATORVASTATIN CA 10 MG TABLET (FP) PO SCH (22:00)
[2020-12-19] MEDS ORDERED: INSULIN (LEVEMIR) 100 UNITS/ML UNITS SQ SCH (22:00)
[2020-12-20 02:01] VITALS: BP 153/97; PULSE 97; TEMP 98.1
[2020-12-20] MEDS: INSULIN SLIDING SCALE (NOVOLOG) 1 VIAL SQ SCH ×2 (06:07→11:06)
[2020-12-20] MEDS: METOCLOPRAMIDE HCL INJECTION 10 MG/2 ML VIAL IVPUSH PRN (08:44)
[2020-12-20] MEDS: SODIUM CHLORIDE 1,000 ML IV SCH (11:05)
[2020-12-20] MEDS: FAMOTIDINE 20 MG TABLET PO SCH (11:07)
[2020-12-20] MEDS: ENOXAPARIN NA (PORCINE) 40 MG/0.4 ML DISP.SYRIN SQ SCH (11:07)
[2020-12-20 14:24] LABS: BASO % 0.6 % (0-2.0); EOS % 0.8 % (0-4.5); HEMATOCRIT 29.9 % (32.4-45.2); HEMOGLOBIN 9.6 GM/dL (10.7-15.3); LYMPH % 25.8 % (8-40); MCH 21.6 pg (25.7-33.7); MCHC 32.1 g/dl (32.0-36.0); MEAN CELL VOLUME 67.4 fl (80-96); MEAN PLT VOLUME 7.9 fl (7.5-11.1); MONO % 6.3 % (3.8-10.2); NEUT % 66.5 % (42.8-82.8); PLATELET COUNT 299 10^3/uL (134-434); RBC 4.43 M/mm3 (3.60-5.2); RDW 16.5 % (11.6-15.6); WHITE BLOOD COUNT 5.4 K/mm3 (4.0-10.0)
[2020-12-20 14:47] LABS: ALBUMIN 2.7 g/dl (3.4-5.0); BLOOD UREA NITROGEN 4.4 mg/dL (7-18)
[2020-12-20 14:54] LABS: CALCIUM 8.6 mg/dL (8.5-10.1)
[2020-12-20 15:00] LABS: CREATININE 0.6 mg/dL (0.55-1.3); TOT PROT 6.7 g/dl (6.4-8.2)
[2020-12-20 15:10] LABS: BILIRUBIN,TOTAL 0.4 mg/dL (0.2-1)
== END 2020-12-20 15:02 | disposition home or self-care (01) | DRG 48 ==
LOC: JER 13:15 → JERBED 18:29 → J5S 23:04
PROVIDERS: ADMIT Internal Medicine; ATTEND Internal Medicine
DX: E11.43 Type 2 diabetes mellitus with diabetic autonomic (poly)neuropathy (principal); E78.5 Hyperlipidemia, unspecified; K29.70 Gastritis, unspecified, without bleeding; D25.9 Leiomyoma of uterus, unspecified; D50.9 Iron deficiency anemia, unspecified; K31.84 Gastroparesis; K76.0 Fatty (change of) liver, not elsewhere classified; Z79.4 Long term (current) use of insulin; E83.42 Hypomagnesemia; R29.6 Repeated falls; E11.65 Type 2 diabetes mellitus with hyperglycemia
CPT/HCPCS: 36415; 74177-TC; 76705-TC; 76830-TC; 80053; 81003; 82010; 82272; 82550; 82728; 82803; 82962; 82977; 83036; 83540; 83550; 83690; 83735; 84100; 84484; 84703; 85025; 85045; 86140; 87086; 87177; 87205; 87209; 87324; 87449; 93005; 93010; 99285-25; C9803; J0131; J1756; Q9967; U0003; U0005

== ENCOUNTER 2021-06-24 05:35 | Observation (INO) | payer OTHER ==
[2021-06-24] MEDS ORDERED: SODIUM CHLORIDE 1,000 ML IV STA (05:45)
[2021-06-24 07:49] LABS: BASO % 0.4 % (0-2.0); EOS % 0.9 % (0-4.5); HEMATOCRIT 33.3 % (32.4-45.2); HEMOGLOBIN 10.2 GM/dL (10.7-15.3); LYMPH % 21.5 % (8-40); MCHC 30.6 g/dl (32.0-36.0); MEAN CELL VOLUME 68.7 fl (80-96); MEAN PLT VOLUME 9.7 fl (7.5-11.1); MONO % 4.9 % (3.8-10.2); NEUT % 72.3 % (42.8-82.8); PLATELET COUNT 236 10^3/uL (134-434); RBC 4.84 M/mm3 (3.60-5.2); RDW 16.5 % (11.6-15.6); WHITE BLOOD COUNT 7.1 K/mm3 (4.0-10.0)
[2021-06-24] MEDS ORDERED: SODIUM CHLORIDE 0.9% 500 ML INFUS.BAG IV ONE ×2 (07:49→11:27)
[2021-06-24 08:13] LABS: CHLORIDE 88 mmol/L (98-107); SODIUM 130 mmol/L (136-145)
[2021-06-24 08:16] LABS: ALBUMIN 3.4 g/dl (3.4-5.0); ANION GAP 7 MMOL/L (8-16); CALCIUM 9.6 mg/dL (8.5-10.1); CO2 34 mmol/L (21-32); MAGNESIUM 1.4 mg/dL (1.8-2.4)
[2021-06-24 08:19] LABS: SGPT/ALT 34 U/L (13-61)
[2021-06-24 08:20] LABS: CREATININE 1.4 mg/dL (0.55-1.3); PHOSPHOROUS 4.3 mg/dL (2.5-4.9); SGOT/AST 29 U/L (15-37); TOT PROT 7.6 g/dl (6.4-8.2)
[2021-06-24 08:21] LABS: BILIRUBIN,TOTAL 0.3 mg/dL (0.2-1)
[2021-06-24 08:22] LABS: ALK PHOS 231 U/L (45-117)
[2021-06-24 08:24] LABS: GLUCOSE,RANDOM 659 mg/dL (74-106)
[2021-06-24 08:32] LABS: VENOUS BASE EXCESS 4.8 mmol/L (-2-2); VENOUS O2 SATURATION 39.2 % (70-80); VENOUS PH 7.337 (7.310-7.410)
[2021-06-24] MEDS ORDERED: INSULIN REGULAR HUMAN 100 UNITS/ML *VIAL SQ ONE (08:36)
[2021-06-24 09:41] LABS: EPI CELLS 25 /uL (0-25.1); HYALINE CASTS 0 /uL (0-3.1); PH,URINE 7.5 (5.0-8.0); URINE APPEARANCE CLEAR; URINE BACTERIA 2347 /uL (0-1359); URINE BILIRUBIN NEGATIVE (NEGATIVE); URINE COLOR YELLOW; URINE GLUCOSE (UA) 3+ (NEGATIVE); URINE KETONE TRACE (NEGATIVE); URINE LEUK ESTERASE 1+ (NEGATIVE); URINE NITRITE NEGATIVE (NEGATIVE); URINE PROTEIN 1+ (NEGATIVE); URINE RBC 16 /uL (0-23.9); URINE UROBILINOGEN 0.2 mg/dL (0.2-1.0); URINE WBC 145 /uL (0-25.8)
[2021-06-24 10:18] LABS: ANISOCYTOSIS 1+; MACROCYTOSIS 0
[2021-06-24] MEDS ORDERED: CEFTRIAXONE 1 GM in DEXTROSE 5%-WATER - 50 ML IVPB ONE (10:32)
[2021-06-24] MEDS ORDERED: CEFTRIAXONE 1 GM/50 ML BAG ONE (11:00)
[2021-06-24] MEDS ORDERED: INSULIN (LEVEMIR) 100 UNITS/ML UNITS SQ ONE (11:17)
[2021-06-24 12:40] LABS: CHLORIDE 100 mmol/L (98-107); SODIUM 136 mmol/L (136-145)
[2021-06-24 12:43] LABS: ANION GAP 7 MMOL/L (8-16); BLOOD UREA NITROGEN 22.2 mg/dL (7-18); CALCIUM 8.3 mg/dL (8.5-10.1); CO2 30 mmol/L (21-32)
[2021-06-24 12:47] LABS: CREATININE 1.2 mg/dL (0.55-1.3)
[2021-06-24 13:19] LABS: GLUCOSE,RANDOM 535 mg/dL (74-106)
[2021-06-24] MEDS: SODIUM CHLORIDE 1,000 ML IV SCH (14:29)
[2021-06-24] MEDS: INSULIN SLIDING SCALE (NOVOLOG) 1 VIAL SQ SCH (16:32)
[2021-06-24] MEDS ORDERED: ACETAMINOPHEN 1000 MG/100 ML BAG IVPB PRN (17:19)
[2021-06-24] MEDS ORDERED: KETOROLAC TROMETHAMINE 30 MG/1 ML VIAL IVPUSH PRN (17:41)
[2021-06-24] MEDS ORDERED: KETOROLAC TROMETHAMINE 30 MG/1 ML VIAL ONE (17:45)
[2021-06-24] MEDS ORDERED: ATORVASTATIN CA 10 MG TABLET (FP) PO SCH (22:00)
[2021-06-24] MEDS ORDERED: BUDESONIDE/FORMETEROL FUMARATE 160/4.5 mcg INHALER IH SCH (22:00)
[2021-06-24 22:14] VITALS: BMI 35.7
[2021-06-25] MEDS ORDERED: ACETAMINOPHEN 1000 MG/100 ML BAG IVPB ONE (00:36)
[2021-06-25] MEDS: INSULIN (LEVEMIR) 100 UNITS/ML UNITS SQ SCH ×4 (00:48→21:53)
[2021-06-25] MEDS: BUDESONIDE/FORMETEROL FUMARATE 160/4.5 mcg INHALER IH SCH ×3 (02:51→21:34)
[2021-06-25] MEDS: SODIUM CHLORIDE 1,000 ML IV SCH ×3 (04:30→17:21)
[2021-06-25] MEDS ORDERED: TRIMETHOBENZAMIDE HCL 300 MG CAPSULE PO ONE (05:13)
[2021-06-25] MEDS: INSULIN SLIDING SCALE (NOVOLOG) 1 VIAL SQ SCH ×3 (06:07→17:25)
[2021-06-25] MEDS ORDERED: MAGNESIUM SULF 50% (8.12 MEQ/2 ML-1 GM VIAL) IVPB ONE ×2 (07:46→09:35)
[2021-06-25 09:00] LABS: BASO % 0.5 % (0-2.0); EOS % 1.6 % (0-4.5); HEMATOCRIT 26.5 % (32.4-45.2); HEMOGLOBIN 8.3 GM/dL (10.7-15.3); LYMPH % 38.1 % (8-40); MCH 21.4 pg (25.7-33.7); MCHC 31.4 g/dl (32.0-36.0); MEAN PLT VOLUME 8.6 fl (7.5-11.1); MONO % 5.9 % (3.8-10.2); NEUT % 53.9 % (42.8-82.8); PLATELET COUNT 185 10^3/uL (134-434); RDW 16.6 % (11.6-15.6); WHITE BLOOD COUNT 4.8 K/mm3 (4.0-10.0)
[2021-06-25 09:23] LABS: BLOOD UREA NITROGEN 10.3 mg/dL (7-18); CALCIUM 8.2 mg/dL (8.5-10.1); MAGNESIUM 1.6 mg/dL (1.8-2.4)
[2021-06-25 09:26] LABS: CREATININE 0.8 mg/dL (0.55-1.3); PHOSPHOROUS 3.1 mg/dL (2.5-4.9)
[2021-06-25 09:27] LABS: BILIRUBIN,TOTAL 0.3 mg/dL (0.2-1); TOT PROT 5.8 g/dl (6.4-8.2)
[2021-06-25 09:28] LABS: ALBUMIN 2.4 g/dl (3.4-5.0)
[2021-06-25] MEDS ORDERED: ESCITALOPRAM OXALATE 10 MG TABLET PO SCH (10:00)
[2021-06-25] MEDS: ENOXAPARIN NA (PORCINE) 40 MG/0.4 ML DISP.SYRIN SQ SCH (10:18)
[2021-06-25] MEDS ORDERED: MAGNESIUM SULF 50% (8.12 MEQ/2 ML-1 GM VIAL) ONE (10:23)
[2021-06-25] MEDS: LIPASE/PROTEASE/AMYLASE 36,000 UNIT CAPSULE PO SCH ×2 (11:28→17:22)
[2021-06-25] MEDS: POLYETHYLENE GLYCOL (HEALTHYLAX) 3350 17 GM PACKET PO SCH ×2 (11:28→21:33)
[2021-06-25] MEDS: DOCUSATE SODIUM 100 MG CAPSULE (FP) PO SCH ×2 (11:28→21:33)
[2021-06-25] MEDS ORDERED: ATORVASTATIN CA 10 MG TABLET (FP) PO SCH (14:14)
[2021-06-25] MEDS ORDERED: ATORVASTATIN CA 40 MG TABLET (FP) PO SCH (14:25)
[2021-06-25] MEDS ORDERED: FERRIC CARBOXYMALTOSE 750 MG in SODIUM CHLORIDE 250 ML IVPB SCH (14:30)
[2021-06-25] MEDS: IRON SUCROSE INJECTION 200 MG in SODIUM CHLORIDE 90 ML IVPB SCH (18:11)
[2021-06-25] MEDS: PANTOPRAZOLE 40 MG TABLET PO SCH (21:32)
[2021-06-25] MEDS: SUCRALFATE 1 GM TABLET (FP) PO SCH (21:33)
[2021-06-25] MEDS ORDERED: MELATONIN 5 MG TABLETS PO ONE (21:57)
[2021-06-26] MEDS: LIPASE/PROTEASE/AMYLASE 36,000 UNIT CAPSULE PO SCH ×3 (06:19→15:12)
[2021-06-26] MEDS: INSULIN (LEVEMIR) 100 UNITS/ML UNITS SQ SCH (06:50)
[2021-06-26] MEDS: INSULIN SLIDING SCALE (NOVOLOG) 1 VIAL SQ SCH ×2 (06:50→12:08)
[2021-06-26 06:55] LABS: BASO % 0.5 % (0-2.0); CALCIUM 8.6 mg/dL (8.5-10.1); EOS % 2.1 % (0-4.5); HEMATOCRIT 26.3 % (32.4-45.2); HEMOGLOBIN 8.4 GM/dL (10.7-15.3); LYMPH % 34.6 % (8-40); MCH 21.3 pg (25.7-33.7); MCHC 31.8 g/dl (32.0-36.0); MEAN CELL VOLUME 66.9 fl (80-96); MEAN PLT VOLUME 8.3 fl (7.5-11.1); MONO % 8.1 % (3.8-10.2); NEUT % 54.7 % (42.8-82.8); PLATELET COUNT 189 10^3/uL (134-434); RBC 3.93 M/mm3 (3.60-5.2); RDW 16.6 % (11.6-15.6); WHITE BLOOD COUNT 4.7 K/mm3 (4.0-10.0)
[2021-06-26 06:56] LABS: BLOOD UREA NITROGEN 7.3 mg/dL (7-18); MAGNESIUM 1.3 mg/dL (1.8-2.4)
[2021-06-26 06:59] LABS: CREATININE 0.8 mg/dL (0.55-1.3); PHOSPHOROUS 3.7 mg/dL (2.5-4.9)
[2021-06-26] MEDS ORDERED: MAGNESIUM SULF 50% (8.12 MEQ/2 ML-1 GM VIAL) IVPB ONE (07:06)
[2021-06-26] MEDS ORDERED: MAGNESIUM OXIDE 400 MG TABLET (FP) PO ONE (09:00)
[2021-06-26] MEDS ORDERED: FERRIC CARBOXYMALTOSE 750 MG in SODIUM CHLORIDE 250 ML IVPB SCH (10:00)
[2021-06-26] MEDS: GABAPENTIN 400 MG CAPSULE PO SCH ×2 (10:42→15:15)
[2021-06-26] MEDS: PANTOPRAZOLE 40 MG TABLET PO SCH (10:42)
[2021-06-26] MEDS: DOCUSATE SODIUM 100 MG CAPSULE (FP) PO SCH ×2 (10:42→15:16)
[2021-06-26] MEDS: SUCRALFATE 1 GM TABLET (FP) PO SCH (10:42)
[2021-06-26] MEDS: BUDESONIDE/FORMETEROL FUMARATE 160/4.5 mcg INHALER IH SCH (10:43)
[2021-06-26] MEDS: MAGNESIUM SULFATE IN WATER 2 GM/50 ML IVPB IVPB SCH ×2 (10:44→15:16)
[2021-06-26] MEDS: ENOXAPARIN NA (PORCINE) 40 MG/0.4 ML DISP.SYRIN SQ SCH (10:45)
[2021-06-26] MEDS ORDERED: ONDANSETRON 4 MG/2 ML VIAL IVPUSH ONE (11:00)
[2021-06-26 15:06] VITALS: BP 147/91; PULSE 83; TEMP 98.6
[2021-06-26] MEDS: SODIUM CHLORIDE 1,000 ML IV SCH (15:12)
[2021-06-26] MEDS: IRON SUCROSE INJECTION 200 MG in SODIUM CHLORIDE 90 ML IVPB SCH (15:16)
== END 2021-06-26 13:40 | disposition left against medical advice (07) ==
LOC: JER 05:35 → JERBED 11:21 → UNDOADMOB 11:21 → JERBED 12:00 → OBSVTOIN 13:39 → INTOOBSV 13:39 → JERBED 21:47 → J7W 21:47
PROVIDERS: ADMIT Internal Medicine; ATTEND Internal Medicine
PROC: 3E03329 Introduction of Other Anti-infective into Peripheral Vein, Percutaneous Approach (ICD-10-PCS; principal; 2021-06-24)
PROC: 3E023GC Introduction of Other Therapeutic Substance into Muscle, Percutaneous Approach (ICD-10-PCS; 2021-06-24)
PROC: 3E013VG Introduction of Insulin into Subcutaneous Tissue, Percutaneous Approach (ICD-10-PCS; 2021-06-24)
PROC: 3E033GC Introduction of Other Therapeutic Substance into Peripheral Vein, Percutaneous Approach (ICD-10-PCS; 2021-06-24)
PROC: 3E0337Z Introduction of Electrolytic and Water Balance Substance into Peripheral Vein, Percutaneous Approach (ICD-10-PCS; 2021-06-24)
DX: I25.10 Atherosclerotic heart disease of native coronary artery without angina pectoris (principal); J06.9 Acute upper respiratory infection, unspecified; I11.9 Hypertensive heart disease without heart failure; E11.65 Type 2 diabetes mellitus with hyperglycemia; R10.9 Unspecified abdominal pain; R93.5 Abnormal findings on diagnostic imaging of other abdominal regions, including retroperitoneum; K04.7 Periapical abscess without sinus; E11.43 Type 2 diabetes mellitus with diabetic autonomic (poly)neuropathy; R74.8 Abnormal levels of other serum enzymes; R10.13 Epigastric pain; K52.9 Noninfective gastroenteritis and colitis, unspecified; K05.6 Periodontal disease, unspecified; Z87.19 Personal history of other diseases of the digestive system; K31.84 Gastroparesis; J02.9 Acute pharyngitis, unspecified; K62.89 Other specified diseases of anus and rectum; D50.9 Iron deficiency anemia, unspecified; E66.8 Other obesity; Z68.35 Body mass index [BMI] 35.0-35.9, adult
CPT/HCPCS: 36415; 71045-TC-FY; 76700-TC; 76856-TC; 80048; 80053; 80061; 81003; 82010; 82728; 82746; 82803; 82962; 83036; 83540; 83550; 83735; 84100; 84484; 85025; 87086; 93005; 93010; 96365; 96372; 96375; 99285-25; C9803-CS; G0378; J1756; U0003; U0005